=== PATIENT | female | born 1995 | race Caucasian/White ===

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

== ENCOUNTER 2017-06-10 23:00 | Emergency (ER) | payer MEDICAID ==
[2017-06-10 23:14] VITALS: TEMP 97.7
[2017-06-10] MEDS ORDERED: NS 1,000 ML IV ONE (23:30)
[2017-06-10] MEDS ORDERED: KETOROLAC 15 MG/1 ML SDV IVP ONE (23:31)
[2017-06-11] MEDS ORDERED: FAMOTIDINE 20 MG/NACL 50 ML IV ONE (00:54)
[2017-06-11] MEDS ORDERED: HALOPERIDOL LACT 5 MG/ML INJ IVP ONE (00:55)
--- NOTE | 2017-06-11 00:58 | EDPHY ---
H & P Stated Complaint: LUQ abd pain. Time Seen by Provider: 06/11/17 00:40 HPI/ROS: HPI The patient presents with abdominal pain which has been present for the last 2 days which is in her left upper quadrant which she describes as a throbbing pain which is constant though comes in waves. It is associated with vomiting and she has not been able to tolerate anything by mouth for the last 2 days. She was drinking alcohol heavily before the pain started. She denies any trauma to the area, she does not have any shortness of breath.. REVIEW OF SYSTEMS Constitutional: No fever, no chills. Eyes: No discharge. ENT: No sore throat. Cardiovascular: No chest pain, no palpitations. Respiratory: No cough, no shortness of breath. Gastrointestinal: See HPI Genitourinary: No hematuria. Musculoskeletal: No back pain. Skin: No rashes. Neurological: No headache. PMHx: No prior abdominal operation, history of similar presentation in November x2 Soc Hx: Homeless, occasional marijuana use, tobacco use, occasional alcohol use PHYSICAL General Appearance: Alert, no distress Eyes: Pupils equal and round no pallor or injection ENT, Mouth: Mucous membranes moist Respiratory: There are no retractions, lungs are clear to auscultation Cardiovascular: Regular rate and rhythm Gastrointestinal: Abdomen is soft with tenderness in the left upper quadrant Neurological: A&O, moves all extremities Skin: Warm and dry, no rashes Musculoskeletal: Neck is supple non tender Extremities: symmetrical, full range of motion Psychiatric: Patient is oriented X 3, there is no agitation Source: Patient, EMS Exam Limitations: No limitations - Personal History Current Tetanus/Diphtheria Vaccine: Unsure Current Tetanus Diphtheria and Acellular Pertussis (TDAP): Unsure - Medical/Surgical History Hx Asthma: Yes Hx Chronic Respiratory Disease: No Hx Diabetes: No Hx Cardiac Disease: No Hx Renal Disease: No Hx Cirrhosis: No Hx Alcoholism: No Hx HIV/AIDS: No Hx Splenectomy or Spleen Trauma: No Other PMH: PTSD, anxiety, asthma - Social History Smoking Status: Current every day smoker Constitutional: Initial Vital Signs Temperature (C) 36.5 C 06/10/17 23:08 Heart Rate 84 06/10/17 23:08 Respiratory Rate 22 H 06/10/17 23:08 Blood Pressure 125/72 H 06/10/17 23:08 O2 Sat (%) 99 06/10/17 23:08 O2 Delivery Mode Room Air Allergies/Adverse Reactions: shrimp Allergy (Verified 08/23/16 09:28) catfish Allergy (Uncoded 08/23/16 09:28) egplant Allergy (Uncoded 08/23/16 09:28) Home Medications: Medication Instructions Recorded Neurontin 08/23/16 oxyCODONE/APAP 5/325 [Percocet 1 - 2 tab PO Q4H PRN #14 tab 11/22/16 5/325 (*)] oxyCODONE/APAP 5/325 [Percocet 1 tab PO Q6 #6 tab 11/29/16 5/325] Medical Decision Making Differential Diagnosis: This is a 21-year-old female who is homeless who presents with right upper quadrant abdominal pain for the last 2 days, getting progressively worse and associated with vomiting. This began after drinking alcohol. Differential diagnosis includes pancreatitis, gastritis, less likely bowel perforation. In the emergency department, labs were checked and were unremarkable. The patient was given IV fluids for vomiting in addition to antiemetics and Haldol. She slept for several hours. I perform serial abdominal exams with continued improvement in her tenderness. She began to feel better and better. I did offer her CT scan of her abdomen pelvis for further evaluation, however she declined and said she would rather be discharged home. I feel this is reasonable. I have discussed that she needs to return to the emergency room if her pain returns in any way. She feels comfortable going home. - Data Points Laboratory Results: Laboratory Results 06/10/17 23:18 06/10/17 23:18 06/10/17 06/10/17 23:18 23:18 WBC 12.09 10^3/uL H 10^3/uL (3.80-9.50) RBC 4.84 10^6/uL 10^6/uL (4.18-5.33) Hgb 16.1 g/dL g/dL (12.6-16.3) Hct 46.6 % % (38.0-47.0) MCV 96.3 fL fL (81.5-99.8) MCH 33.3 pg pg (27.9-34.1) MCHC 34.5 g/dL g/dL (32.4-36.7) RDW 13.0 % % (11.5-15.2) Plt Count 303 10^3/uL 10^3/uL (150-400) MPV 10.0 fL fL (8.7-11.7) Neut % (Auto) 63.2 % % (39.3-74.2) Lymph % (Auto) 26.6 % % (15.0-45.0) Isabella % (Auto) 9.1 % % (4.5-13.0) Eos % (Auto) 0.5 % L % (0.6-7.6) Baso % (Auto) 0.4 % % (0.3-1.7) Nucleat RBC Rel Count 0.0 % % (0.0-0.2) Absolute Neuts (auto) 7.64 10^3/uL H 10^3/uL (1.70-6.50) Absolute Lymphs (auto) 3.21 10^3/uL H 10^3/uL (1.00-3.00) Absolute Monos (auto) 1.10 10^3/uL H 10^3/uL (0.30-0.80) Absolute Eos (auto) 0.06 10^3/uL 10^3/uL (0.03-0.40) Absolute Basos (auto) 0.05 10^3/uL 10^3/uL (0.02-0.10) Absolute Nucleated RBC 0.00 10^3/uL 10^3/uL (0-0.01) Immature Gran % 0.2 % % (0.0-1.1) Immature Gran # 0.03 10^3/uL 10^3/uL (0.00-0.10) Sodium 144 mEq/L mEq/L (134-144) Potassium 3.8 mEq/L mEq/L (3.5-5.2) Chloride 105 mEq/L mEq/L (97-110) Carbon Dioxide 19 mEq/l L mEq/l (22-31) Anion Gap 20 mEq/L H mEq/L (8-16) BUN 13 mg/dL mg/dL (7-23) Creatinine 1.0 mg/dL mg/dL (0.6-1.0) Estimated GFR > 60 Glucose 97 mg/dL mg/dL (70-100) Calcium 10.7 mg/dL H mg/dL (8.5-10.4) Phosphorus 3.6 mg/dL mg/dL (2.5-4.5) Total Bilirubin 1.0 mg/dL mg/dL (0.1-1.4) Conjugated Bilirubin 0.4 mg/dL mg/dL (0.0-0.5) Unconjugated Bilirubin 0.6 mg/dL mg/dL (0.0-1.1) AST 27 IU/L IU/L (14-46) ALT 33 IU/L IU/L (9-52) Alkaline Phosphatase 84 IU/L IU/L (38-126) Total Protein 8.7 g/dL H g/dL (6.3-8.2) Albumin 5.2 g/dL H g/dL (3.5-5.0) Lipase 89 IU/L IU/L (23-300) Medications Given: Discontinued Medications Haloperidol Lactate (Haldol Injection) 2.5 mg IVP EDNOW ONE Stop: 06/11/17 00:56 Last Admin: 06/11/17 01:19 Dose: 2.5 mg Sodium Chloride (Ns) 1,000 mls @ 0 mls/hr IV ONCE ONE PRN Reason: Wide Open Stop: 06/10/17 23:31 Last Admin: 06/10/17 23:38 Dose: 1,000 mls Famotidine/Sodium Chloride (Pepcid 20 Mg (Premix)) 50 mls @ 200 mls/hr IV EDNOW ONE Stop: 06/11/17 01:08 Last Admin: 06/11/17 01:19 Dose: 50 mls Ketorolac Tromethamine (Toradol) 15 mg IVP EDNOW ONE Stop: 06/10/17 23:32 Last Admin: 06/10/17 23:39 Dose: 15 mg Ondansetron HCl (Zofran Odt 4 Mg Prepack#2) 1 btl TAKEHOME EDNOW ONE Stop: 06/11/17 06:09 Last Admin: 06/11/17 06:10 Dose: 1 btl Departure - Departure Disposition: Home, Routine, Self-Care Clinical Impression: Left upper quadrant abdominal pain of unknown etiology Vomiting Qualifiers: Vomiting type: unspecified Vomiting Intractability: non-intractable Nausea presence: with nausea Qualified Code(s): R11.2 - Nausea with vomiting, unspecified Condition: Good Instructions: Acute Abdominal Pain (ED) Additional Instructions: The cause of your pain is not exactly clear, because of this, you should return to the emergency room if your worse in any way. Referrals: [facility],. [Clinic] - As per Instructions
[2017-06-11 01:05] LABS: % IMMATURE GRANULYOCYTES 0.2 % (0.0-1.1); ABSOLUTE IMMATURE GRANULOCYTES 0.03 10^3/uL (0.00-0.10); ADD DIFF? NO; ADD MORPH? NO; ADD SCAN? NO; ATYPICAL LYMPHOCYTE FLAG 20 (0-99); FRAGMENT RBC FLAG 0 (0-99); HEMATOCRIT 46.6 % (38.0-47.0); HEMOGLOBIN 16.1 g/dL (12.6-16.3); LEFT SHIFT FLG 0 (0-99); LIPEMIA HEMOLYSIS FLAG 90 (0-99); MEAN CELL HEMOGLOBIN 33.3 pg (27.9-34.1); MEAN CELL HEMOGLOBIN CONCENTR. 34.5 g/dL (32.4-36.7); MEAN CELL VOLUME 96.3 fL (81.5-99.8); PLATELET CLUMPS FLAG 10 (0-99); PLATELET COUNT 303 10^3/uL (150-400); RED BLOOD CELL COUNT 4.84 10^6/uL (4.18-5.33)
[2017-06-11 01:12] LABS: ALANINE AMINOTRANSFERASE 33 IU/L (9-52); ALBUMIN 5.2 g/dL (3.5-5.0); ALKALINE PHOSPHATASE 84 IU/L (38-126); ANION GAP 20 mEq/L (8-16); ASPARTATE AMINOTRANSFERASE 27 IU/L (14-46); BILIRUBIN-CONJUGATED 0.4 mg/dL (0.0-0.5); BILIRUBIN-UNCONJUGATED 0.6 mg/dL (0.0-1.1); CALCIUM 10.7 mg/dL (8.5-10.4); CARBON DIOXIDE 19 mEq/l (22-31); CHLORIDE 105 mEq/L (97-110); GLOMERULAR FILTRATION RATE > 60; GLUCOSE 97 mg/dL (70-100); POTASSIUM 3.8 mEq/L (3.5-5.2); SODIUM 144 mEq/L (134-144); TOTAL PROTEIN 8.7 g/dL (6.3-8.2)
[2017-06-11 03:04] VITALS: RESP 14; O2SAT 94
[2017-06-11] MEDS ORDERED: ONDANSETRON 4MG PREPACK#2 BTL TAKEHOME ONE (06:08)
[2017-06-11 06:15] VITALS: BP 116/67; PULSE 68
== END 2017-06-11 06:25 | disposition home or self-care (01) ==
LOC: EDUNIT#
DX: R10.12 Left upper quadrant pain (principal); R11.2 Nausea with vomiting, unspecified; J45.909 Unspecified asthma, uncomplicated; F17.200 Nicotine dependence, unspecified, uncomplicated
CPT/HCPCS: 96365; J1885

== ENCOUNTER 2017-08-16 13:21 | Emergency (ER) | payer MEDICAID ==
--- NOTE | 2017-08-16 13:43 | EDPHY ---
H & P Time Seen by Provider: 08/16/17 13:43 HPI/ROS: CHIEF COMPLAINT: Concerned about possible inadvertent injection of Summer ink HISTORY OF PRESENT ILLNESS: The patient presents to the ED after a possible inadvertent injection of Summer and while self tattooing. The patient was reportedly "cleaning up an old tatoo" and injected approximately 0.25 ml of ink subcutaneously. It is unclear why the patient thinks this was an intravenous injection as the area does not appear to be located over a superficial vein. The patient denies any complaints of fever. She denies significant past medical history. She denies any complaints of numbness or weakness in the hand. She denies any acute neurologic complaints. REVIEW OF SYSTEMS: A comprehensive 10 point review of systems is otherwise negative aside from elements mentioned in the history of present illness. Source: Patient Exam Limitations: No limitations - Medical/Surgical History Hx Asthma: Yes Hx Chronic Respiratory Disease: No Hx Diabetes: No Hx Cardiac Disease: No Hx Renal Disease: No Hx Cirrhosis: No Hx Alcoholism: No Hx HIV/AIDS: No Hx Splenectomy or Spleen Trauma: No Other PMH: PTSD, anxiety, asthma - Social History Smoking Status: Current every day smoker - Physical Exam Exam: General Appearance: Alert, no distress Eyes: Pupils equal and round no pallor or injection ENT, Mouth: Mucous membranes moist Respiratory: There are no retractions, lungs are clear to auscultation Cardiovascular: Regular rate and rhythm Gastrointestinal: Abdomen is soft and nontender, no masses, bowel sounds normal Neurological: A&O, normal motor function, normal sensory exam, normal cranial nerves Skin: Superficial test to noted to the forearm, small area of ink deposition noted in the subcutaneous tissue approximately 3 mm x 3 mm. This does not appear to be located over a superficial vein. Musculoskeletal: Neck is supple nontender Extremities: symmetrical, full range of motion Psychiatric: Patient is oriented X 3, there is no agitation Constitutional: Initial Vital Signs Temperature (C) 37 C 08/16/17 13:35 Heart Rate 77 08/16/17 13:35 Respiratory Rate 16 08/16/17 13:35 Blood Pressure 96/58 L 08/16/17 13:35 O2 Sat (%) 94 08/16/17 13:35 O2 Delivery Mode Room Air Allergies/Adverse Reactions: shrimp Allergy (Verified 08/16/17 13:45) catfish Allergy (Uncoded 08/23/16 09:28) egplant Allergy (Uncoded 08/23/16 09:28) Home Medications: Medication Instructions Recorded NK [No Known Home Meds] 08/16/17 Medical Decision Making ED Course/Re-evaluation: The patient is well-appearing without evidence fever, cellulitis, abscess or any neurovascular injury. At this point time I do not feel there is an additional indication for testing or a therapy even in very unlikely event of an intravenous injection. The patient has been instructed to return to the ED immediately for any fever, acute numbness, weakness, development of pain or other concerns. She is advised not to perform her own tattooing in the future. Departure - Departure Disposition: Home, Routine, Self-Care Clinical Impression: Foreign body reaction to tattoo dyes Condition: Good Instructions: Cellulitis (ED) Additional Instructions: 1. Please return to the ED for any fever, pain, redness, numbness, swelling or other concerns. 2. Please do not perform your own "tatooing"
[2017-08-16 13:51] VITALS: BP 96/58; PULSE 77; RESP 16; TEMP 98.6; O2SAT 94
== END 2017-08-16 14:21 | disposition home or self-care (01) ==
LOC: EDUNIT#
DX: L81.8 Other specified disorders of pigmentation (principal); J45.909 Unspecified asthma, uncomplicated; F17.200 Nicotine dependence, unspecified, uncomplicated

== ENCOUNTER 2018-01-11 14:30 | Observation (INO) | payer MEDICAID ==
[2018-01-11 18:47] LABS: PLATELET COUNT 339 10^3/uL (150-400)
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
[2018-01-11 19:52] LABS: HEPATITIS B SURFACE ANTIGEN NEGATIVE (NEGATIVE)
[2018-01-11 20:01] LABS: HIV TYPE 1 AND 2 NEGATIVE (NEGATIVE)
[2018-01-11 20:09] LABS: HEPATITIS C ANTIBODY TOTAL REACTIVE (NEGATIVE)
[2018-01-13 13:15] LABS: HCV QT RNA PCR < 15 IU/mL (<15)
== END 2018-01-11 20:00 | disposition home or self-care (01) ==
LOC: FLD 15:00 → EDSTATUS 15:22
PROVIDERS: ADMIT Advanced Practice Midwife; ATTEND Advanced Practice Midwife
DX: O9A.219 Injury, poisoning and certain other consequences of external causes complicating pregnancy, unspecified trimester (principal); J45.909 Unspecified asthma, uncomplicated; F43.12 Post-traumatic stress disorder, chronic; B19.20 Unspecified viral hepatitis C without hepatic coma; F12.90 Cannabis use, unspecified, uncomplicated; Z62.810 Personal history of physical and sexual abuse in childhood; Z59.0 Homelessness; Z3A.00 Weeks of gestation of pregnancy not specified
CPT/HCPCS: 76811; G0378; 80307; G0472; G0480

== ENCOUNTER 2018-02-12 09:19 | Observation (INO) | payer MEDICAID ==
[2018-02-12 09:55] LABS: PLATELET COUNT 368 10^3/uL (150-400)
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
--- NOTE | 2018-02-12 12:20 | OBPP ---
Progress Note Assessment/Plan: Assessment: s/p to a 26 week fetus PPD # 0 - pt is stable Plan: Continue routine pp care Vss, afebrile H/H stable +Hep C Awaiting SS consult to help plan discharge 02/12/18 12:19 Subjective/ Course: 02/12/18 12:20 Pt seen and examined. She is eating breakfast. Some cramping, almost resolved now after receiving Motrin. Minimal lochia. She is wanting to take a nap, but plans to shower first. Objective: 02/12/18 08:30 Uterine Position/Fundal Height: Umbilicus -1 Uterine Tone: Firm Physical Exam - Physical Exam Respiratory: lungs clear, normal breath sounds Cardiac/Chest: regular rate, rhythm Abdomen: non-tender, soft Extremities: non-tender, normal inspection Skin: normal color, warm/dry Neuro/Psych: alert, normal mood/affect, oriented x 3
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
[2018-02-12 18:21] VITALS: BP 128/72
== END 2018-02-12 19:55 | disposition home or self-care (01) ==
LOC: INTOOBSV 09:19 → FLD 09:19
PROVIDERS: ADMIT Obstetrics & Gynecology; ATTEND Obstetrics & Gynecology
DX: Z39.0 Encounter for care and examination of mother immediately after delivery (principal); B18.2 Chronic viral hepatitis C; Z59.0 Homelessness
CPT/HCPCS: 80307; G0378; G0480

== ENCOUNTER 2018-10-14 19:19 | Emergency (ER) | payer MEDICAID ==
[2018-10-14 19:34] VITALS: BP 105/55
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
== END 2018-10-14 19:53 | disposition home or self-care (01) ==
LOC: EDUNIT#
DX: J06.9 Acute upper respiratory infection, unspecified (principal); F10.920 Alcohol use, unspecified with intoxication, uncomplicated; Z59.0 Homelessness; F17.200 Nicotine dependence, unspecified, uncomplicated